=== PATIENT | male | born 1990 | race Caucasian/White ===

== ENCOUNTER 2018-02-05 11:41 | Emergency (ER) | payer SELFPAY ==
[2018-02-05 12:27] VITALS: BP 124/75
--- NOTE | 2018-02-05 13:03 | UC ---
Dental HPI - HPI Summary HPI Summary: Patient here today with right upper dental pain began 2 days ago now has pain and swelling in his cheek and pain in the right side of his sinuses well. Has the last 4 teeth on the upper right side are decayed-and gum swollen and red - History of Current Complaint Chief Complaint: UCDentalProblem Stated Complaint: SINUS COMPLAINT Time Seen by Provider: 02/05/18 12:45 Hx Obtained From: Patient Onset/Duration: Gradual Onset, Lasting Days, Still Present Pain Intensity: 4 Pain Scale Used: 0-10 Numeric Related History: Previous Dental Care on Same Tooth, Swelling - Allergies/Home Medications Allergies/Adverse Reactions: Allergies Allergy/AdvReac Type Severity Reaction Status Date / Time Sulfa (Sulfonamide Allergy Unknown Verified 02/05/18 12:24 Antibiotics) Reaction Details PMH/Surg Hx/FS Hx/Imm Hx Previously Healthy: Yes - Surgical History Surgical History: None - Family History Known Family History: Positive: None - Social History Occupation: Unemployed Lives: With Family - Living with his grandparents in [place] Alcohol Use: None Substance Use Type: None Smoking Status (MU): Never Smoked Tobacco Review of Systems Constitutional: Negative Skin: Negative Eyes: Negative ENT: Dental Pain - right upper, Sinus Pain/Tenderness - right maxillary Respiratory: Negative Cardiovascular: Negative Gastrointestinal: Negative Genitourinary: Negative Motor: Negative Neurovascular: Negative Musculoskeletal: Negative Neurological: Negative Psychological: Negative Is Patient Immunocompromised?: No All Other Systems Reviewed And Are Negative: Yes Physical Exam Triage Information Reviewed: Yes Appearance: Well-Appearing, No Pain Distress, Well-Nourished Vital Signs: Initial Vital Signs Temp 97.8 F 02/05/18 12:21 Pulse 63 02/05/18 12:21 Resp 17 02/05/18 12:21 BP 124/75 02/05/18 12:21 Pulse Ox 98 02/05/18 12:21 Vital Signs Reviewed: Yes Eye Exam: Normal Eyes: Positive: Conjunctiva Clear ENT Exam: Normal ENT: Positive: Normal ENT inspection, Hearing grossly normal, Pharynx normal, Dental tenderness, Sinus tenderness, Uvula midline. Negative: Tonsillar swelling, Tonsillar exudate, Trismus, Muffled voice, Hoarse voice Dental Exam: Other Dental: Positive: Percussion Tenderness @ - 1,2,3,4, Gross Decay/Caries @ - 1,2, 3,4, Abscess @ Neck exam: Normal Neck: Positive: Supple, Nontender Respiratory Exam: Normal Respiratory: Positive: Chest non-tender, No respiratory distress, No accessory muscle use Cardiovascular Exam: Normal Cardiovascular: Positive: RRR, Pulses Normal, Brisk Capillary Refill Musculoskeletal Exam: Normal Musculoskeletal: Positive: Strength Intact, ROM Intact, No Edema Neurological Exam: Normal Neurological: Positive: Alert, Muscle Tone Normal Psychological Exam: Normal Skin Exam: Normal Dental Complaint Course/Dx - Course Course Of Treatment: Prescribed clindamycin, naproxen, hydrocodone. Encourage patient to use antiseptic mouthwash, follow with dentist MAURIZIO. information given for dentists in the area as well as for the free clinic to get a dental vouchers - Differential Dx/Diagnosis Provider Diagnoses: dental abscess right upper gum, dental decay teeth number 1, 2,3,4 Discharge - Sign-Out/Discharge Documenting (check all that apply): Discharge/Admit/Transfer - Discharge Plan Condition: Stable Disposition: HOME Prescriptions: Clindamycin Cap(NF) [Clindamycin Cap 300 mg Cap(NF)] 300 mg PO Q6H #40 cap Hydrocodone/Acetaminophen [Hydrocodone-Acetamin 5-325 mg] 0.5 - 1 tab PO Q6HR PRN #15 tablet MDD 4 PRN Reason: pain Naproxen [Naproxen Enteric Coated 500 MG TAB] 500 mg PO BID PRN #30 tablet.dr DELACRUZ Reason: pain Patient Education Materials: Dental Abscess (ED), Toothache (ED) Referrals: [facility] [Outside] - As Soon As Possible Additional Instructions: follow with dentist maurizio - Billing Disposition and Condition Condition: STABLE Disposition: Home
== END 2018-02-05 13:06 | disposition home or self-care (01) ==
LOC: UCCORT 11:41
DX: K04.7 Periapical abscess without sinus (principal); K02.9 Dental caries, unspecified
CPT/HCPCS: 99202; G0463